=== PATIENT | female | born 1955 | race Caucasian/White ===

== ENCOUNTER → 2016-10-09 | Outpatient (CLI) | payer MEDICARE, OTHER ==
[~2016-10-09] MED LIST: AMBIEN PO; AMBIEN10 MG PO; ASPIRIN81 MG PO; AUGMENTIN875 MG PO; AURALGAN EAR DR14 ML OT; AZITHROMYCIN250 MG PO; BACTRIM DS TABL1 TA1 PO; CARAFATE PO; EFFIENT10 MG PO; FIORICET 50-321 EACH PO; HYDROCODON-ACE1 EAC5 PO; HYDROCODONE-APA1 T54 PO; LEVAQUIN PO; LIPITOR40 MG PO; LISINOPRIL PO; MEDROL4 MG/DOSE- PO; METOPROLOL TAR25 MG PO; NAPROXEN PO; NEXIUM PO; NICOTINE TRANSD14 MG EXT; NITROSTAT0.4 MG SL; NORCO 10/3251 TAB PO; NORVASC PO; PAXIL40 MG PO; PHENERGAN25 M1 PO; PROTONIX PO; PYRIDIUM PO; SUCRALFATE1 G/10 M1 PO
--- NOTE | ~2016-10-09 | MY11 ---
[facility] A Service of [facility] RADIOLOGY TEXT RESULTS PATIENT: LITZY DEVINE LOCATION: [facility] : 57 UNIT #: [id number] AGE: [address]: Joel Bullard MD SEX: F ORDER DR: [id number] [id number] [facility]. [place], [place] [address] [id number] O MR#: [id number] Acc #: [id number] NAME: LITZY DEVINE : 1955 SEX: F STUDY DATE/TIME: 10/09/2016 12:53 UNIT: [facility] ROOM: STUDY DESCRIPTION: MY Mammogram Screening Dig Bhaskar Attending Physician: Joel Bullard M.D. Ordering Physician: Joel Bullard M.D. Primary Care Physician: Joel Bullard M.D. MEDICAL IMAGING REPORT This report is preliminary unless electronic signature is present EXAM Digital screening mammogram, 10/09/2016. HISTORY 61-year-old woman; no risk elevation. Annual screening. COMPARISON STUDIES 06/21/2014. Follow-up diagnostic right breast imaging with ultrasound, 01/16/2015. FINDINGS Digital imaging of each breast was completed, utilizing screening protocol. Review incudes FDA-approved CAD device. Breast parenchyma is moderately dense with residual fibronodular opacities centrally located in each breast. There is stable dominance on the right. I see no developing mass or interval-occurring microcalcifications and no suspicious architectural deformity. IMPRESSION Benign mammogram. Annual screening recommended. Patients over the age of 40 are entered into a reminder system with target due date for the next mammogram. A result letter will also be sent to the patient. BIRADS: 2 Benign finding. Dictated by... Armond Ayala M.D. [facility] A Service of [facility] RADIOLOGY TEXT RESULTS PATIENT: LITZY DEVINE LOCATION: [facility] : 57 UNIT #: [id number] AGE: [address]: Joel Bullard MD SEX: F ORDER DR: THIS IS AN ELECTRONICALLY VERIFIED REPORT Armond Ayala M.D. at 10/10/2016 8:01 AM Nela TD: 10/09/2016 17:35 JOB #: [id number] MEDICAL IMAGING REPORT Page 1 of 1 COPY
== END | disposition home or self-care (01) ==
LOC: CWCC 12:33
DX: Z12.31 Encounter for screening mammogram for malignant neoplasm of breast (principal)
CPT/HCPCS: G0202

== ENCOUNTER → 2017-03-21 | Outpatient (CLI) | payer MEDICARE, OTHER ==
--- NOTE | ~2017-03-21 | MR17 ---
[facility] A Service of [facility] RADIOLOGY TEXT RESULTS PATIENT: LITZY DEVINE LOCATION: [facility] : 57 UNIT #: [id number] AGE: [address]: Joel Bullard MD SEX: F ORDER DR: [id number] [address] [address] [id number] O MR#: [id number] Acc #: [id number] NAME: LITZY DEVINE : 1955 SEX: F STUDY DATE/TIME: 03/21/2017 10:40 UNIT: [facility] ROOM: STUDY DESCRIPTION: MR Brain WWo Contrast Attending Physician: Joel Bullard M.D. Ordering Physician: Joel Bullard M.D. Primary Care Physician: Joel Bullard M.D. MRI CENTER REPORT This report is preliminary unless electronic signature is present. EXAM MRI of the brain with and without contrast dated 03/21/[address] head without contrast dated 12/27/2012. HISTORY Increased vertigo/dizziness for the last 1-2 months. FINDINGS Multisequence, multiplanar imaging of the brain was obtained with and without contrast. GFR measured greater than 60. 12 mL of MultiHance was administered intravenously. Multiple less than 1 cm hyperintense T2-signal lesions are noted in the brain involving subcortical white matter, periventricular white matter, bilateral external/extreme capsular region, elmer. Relatively larger area of increased T2 signal is noted in the anterolateral right temporal lobe, at and below the level of the right circular sulcus. Thick slices through the sella with the pituitary gland, pineal region and upper cervical spine are within normal limits. Postcontrast sequences do not demonstrate enhancing lesions. Nasal septum is deviated to the left. Paranasal sinuses, orbits with the ocular structures are unremarkable. There is minimal bilateral mastoid mucosal thickening. IMPRESSION 1. Scattered hyperintense T2-signal lesions are noted in the brain, nonspecific and nonenhancing. Based on age and statistics, they are likely related to old insults likely from chronic moderate microvascular ischemic change or migraine. There is a larger area of insult in the right temporal lobe. Correlate with history. 2. The lesions could also be related to other reasons like white matter disease. Nonspecific and hence clinical correlation is suggested. 3. No acute intracranial abnormality like acute stroke, hydrocephalus, STS. [facility] A Service of [facility] RADIOLOGY TEXT RESULTS PATIENT: LITZY DEVINE LOCATION: [facility] : 57 UNIT #: [id number] AGE: [address]: Joel Bullard MD SEX: F ORDER DR: midline shift. No hemorrhage or enhancing mass is seen. Dictated by... Carolynn Griffith M.D. THIS IS AN ELECTRONICALLY VERIFIED REPORT Carolynn Griffith M.D. at 03/26/2017 7:04 PM CPR/mjs TD: 03/22/2017 07:17 JOB #: [id number] MRI CENTER REPORT Page 1 of 1
[2017-03-21 12:45] LABS: POC - CREATININE 0.85 mg/dL (0.44-1.03); POC - GFR >60.0 mL/min (>60)
== END | disposition home or self-care (01) ==
LOC: SMRI 09:41
PROVIDERS: Family Medicine
DX: R42 Dizziness and giddiness (principal); R90.89 Other abnormal findings on diagnostic imaging of central nervous system
CPT/HCPCS: 70553; 82565; A9581

== ENCOUNTER 2017-03-26 14:19 | Emergency (ER) | payer MEDICARE ==
[~2017-03-26] VITALS: Ht 162.6 cm; Wt 59.9 kg
--- NOTE | ~2017-03-26 | CT23 ---
[facility] A Service of [facility] RADIOLOGY TEXT RESULTS PATIENT: LITZY DEVINE LOCATION: [facility] : 57 UNIT #: [id number] AGE: [address]: French Yin MD SEX: F ORDER DR: [id number] [facility] [address] [place], [place] [address] [id number] E MR#: [id number] Acc #: [id number] NAME: LITZY DEVINE : 1955 SEX: F STUDY DATE/TIME: 03/26/2017 16:46 UNIT: [facility] ROOM: STUDY DESCRIPTION: CT Angio Neck Attending Physician: French Yin M.D. Ordering Physician: French Yin M.D. Primary Care Physician: Joel Bullard M.D. MEDICAL IMAGING REPORT This report is preliminary unless electronic signature is present EXAM CT angiogram of the head and neck with contrast dated 03/26/[address] head without contrast dated 03/26/2017, MRI brain with and without contrast dated 03/21/2017. HISTORY Blurred vision, headache, neck pain, back pain for 2 months. It is worse today. FINDINGS CT angiogram of the head and neck was obtained with IV contrast in the axial plane followed by reformats. Curved reformats of the major neck arteries were performed. Head was reformatted in 3 planes along with tumbling 3-D MIP images of the [place]. Surface rendered images with bilateral MCA snapshots were obtained in a separate workstation. This CT examination was performed with one or more of the following radiation dose reduction techniques: automatic exposure control, adjustment of mA and/or kV according to patient size, and iterative reconstruction. NECK: Left common carotid artery arises from the innominate artery. Two-vessel aortic arch is seen. There appears to be mild narrowing of the mid to distal third of the left common carotid artery, mid third of the right common carotid due to noncalcified atherosclerotic plaques. Calcified plaques are noted in bilateral common carotid artery bifurcations extending into bilateral ICA bulbs. No measurable severe stenosis in bilateral ICA bulbs per NASCET criteria. Bilateral external carotid arteries are within normal limits. Vertebral arteries demonstrate expected course, caliber and flow. No significant stenosis, aneurysm or AVM. [facility] A Service of [facility] RADIOLOGY TEXT RESULTS PATIENT: LITZY DEVINE LOCATION: [facility] : 57 UNIT #: [id number] AGE: [address]: French Yin MD SEX: F ORDER DR: HEAD: Bilateral intracranial internal carotid arteries demonstrate mild atherosclerotic plaques in bilateral cavernous ICA. Air pockets are noted adjacent to the left cavernous ICA without any aneurysmal dilatation or obvious dissection. Bilateral anterior and middle cerebral arteries are within normal limits. Bilateral posterior communicating arteries are noted which feed P2 and distal portions of bilateral LOG MARKER. Left P1 segment is not as well seen and is probably aplastic to very hypoplastic. A small right P1 segment is noted. 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 No significant stenosis is noted from P2 portions of bilateral LOG MARKER distally. Bilateral vertebral arteries demonstrate decrease in caliber as they extend towards the basilar artery. It is noted particularly in the right distal V4 segment after the takeoff of the right vertebral artery. No occlusive thrombus in the dural venous sinuses. IMPRESSION 1. No hemodynamically flow-limiting significant stenosis in bilateral internal carotid artery bulbs per NASCET criteria. 2. Atherosclerotic narrowing is noted in bilateral common carotid arteries. 3. No significant aneurysm, AVM or dissection in the major vessels of the head or neck. 4. Air pockets are noted adjacent to the cavernous left ICA, in the superior aspect of the left vehicle damage appraiser space above the zygomatic arch and in the region of the left petroclival synchondrosis and adjacent carotid canal. No well-defined fracture lines could be clearly seen to correlate for injury with subsequent air intracranially. Correlate with history. No obvious dissection of the vessel nearby could be seen nor is there any pseudoaneurysm. Dictated by... Carolynn Griffith M.D. THIS IS AN ELECTRONICALLY VERIFIED REPORT Carolynn Griffith M.D. at 03/27/2017 6:38 PM CPR/mjs TD: 03/27/2017 09:48 JOB #: [id number] MEDICAL IMAGING REPORT Page 1 of 1 COPY
--- NOTE | ~2017-03-26 | CT71 ---
[facility] A Service of [facility] RADIOLOGY TEXT RESULTS PATIENT: LITZY DEVINE LOCATION: [facility] : 57 UNIT #: [id number] AGE: [address]: French Yin MD SEX: F ORDER DR: [id number] [facility] [address] [place], [place] [address] [id number] E MR#: [id number] Acc #: [id number] NAME: LITZY DEVINE : 1955 SEX: F STUDY DATE/TIME: 03/26/2017 16:44 UNIT: [facility] ROOM: STUDY DESCRIPTION: CT Head Wo Contrast Attending Physician: French Yin M.D. Ordering Physician: French Yin M.D. Primary Care Physician: Joel Bullard M.D. MEDICAL IMAGING REPORT This report is preliminary unless electronic signature is present EXAM CT head without contrast 03/26/2017 HISTORY 61-year-old female with blurry vision and headache for 2 months, worse today. COMPARISON CT head 12/27/2012 TECHNIQUE Routine unenhanced axial images performed through the brain. This CT exam was performed with one or more of the following radiation dose reduction techniques: Automatic exposure control, adjustment of mA and/or kV according to patient size, and iterative reconstruction. FINDINGS No hemorrhage, acute infarction, mass lesion, or abnormal extraaxial fluid collection. No midline shift or focal mass effect. Ventricular system normal in size and configuration. No acute bony abnormality. Visualized paranasal sinuses and mastoid air cells are clear. IMPRESSION No acute intracranial abnormality. Dictated by... Jadiel Meyers M.D. THIS IS AN ELECTRONICALLY VERIFIED REPORT Jadiel Meyers M.D. at 03/27/2017 4:07 PM ROSALBA/carissa [facility] A Service of [facility] & [facility] RADIOLOGY TEXT RESULTS PATIENT: LITZY DEVINE LOCATION: [facility] : 57 UNIT #: [id number] AGE: [address]: French Yin MD SEX: F ORDER DR: TD: 03/27/2017 08:30 JOB #: [id number] MEDICAL IMAGING REPORT Page 1 of 1 COPY
--- NOTE | ~2017-03-26 | CT17 ---
[facility] A Service of [facility] RADIOLOGY TEXT RESULTS PATIENT: LITZY DEVINE LOCATION: [facility] : 57 UNIT #: [id number] AGE: [address]: French Yin MD SEX: F ORDER DR: [id number] [facility] [address] [place], [place] [address] [id number] E MR#: [id number] Acc #: [id number] NAME: LITZY DEVINE : 1955 SEX: F STUDY DATE/TIME: 03/26/2017 16:46 UNIT: [facility] ROOM: STUDY DESCRIPTION: CT Angio Head Attending Physician: French Yin M.D. Ordering Physician: French Yin M.D. Primary Care Physician: Joel Bullard M.D. MEDICAL IMAGING REPORT This report is preliminary unless electronic signature is present EXAM CT angiogram of the head with contrast dated 03/26/2017 HISTORY Blurred vision, headache, neck pain, back pain for 2 months. It is worse today FINDINGS Please see CT angiogram of the neck for results. Dictated by... Carolynn Griffith M.D. THIS IS AN ELECTRONICALLY VERIFIED REPORT Carolynn Griffith M.D. at 03/27/2017 6:38 PM CPR/yanet TD: 03/27/2017 09:49 JOB #: [id number] MEDICAL IMAGING REPORT Page 1 of 1 COPY
[2017-03-26 15:53] LABS: BASOPHIL% 0.1 % (0-2.5); EOSINOPHIL# 0.1 X10e3 (0-0.7); EOSINOPHIL% 0.9 % (0.0-7.0); HEMATOCRIT 38.4 % (35.0-45.0); HEMOGLOBIN 12.8 gm/dL (12.0-16.0); LYMPHOCYTE# 3.3 X10e3 (1.0-3.5); LYMPHOCYTE% 36.4 % (17.0-45.0); MEAN CELL VOLUME 90.5 FL (83-96); MEAN CORPUSCULAR HEMOGLOBIN 30.1 PG (28-34); MEAN CORPUSCULAR HGB CONC 33.2 g/dL (30-36); MEAN PLATELET VOLUME 7.9 FL (6.5-11.5); MONOCYTE# 0.8 X10e3 (0-1.0); MONOCYTE% 8.5 % (3.0-12.0); NEUTROPHIL# 4.9 X10e3 (1.5-7.1); NEUTROPHIL% 54.1 % (40-75); PLATELET COUNT 248 X10e3 (140-420); RED BLOOD COUNT 4.25 X10e (3.90-5.30); WHITE BLOOD COUNT 9.1 X10e3 (4.0-10.5)
[2017-03-26 15:58] LABS: DIFF IND NO
[2017-03-26 16:00] LABS: ALBUMIN SERUM 4.2 g/dL (3.5-5.0); ALKALINE PHOSPHATASE 81 U/L (32-92); ALT (SGPT) 15 U/L (10-40); AST (SGOT) 19 U/L (10-42); BILIRUBIN, DIRECT <0.1 mg/dL (0.0-0.2); BILIRUBIN,INDIRECT 0.2 mg/dL (0.0-0.9); BILIRUBIN,TOTAL 0.3 mg/dL (0.2-2.0); BLOOD UREA NITROGEN 15 mg/dL (9-23); BUN/CREATININE RATIO 18.75; CALCIUM SERUM 9.2 mg/dL (8.4-10.2); CARBON DIOXIDE 27 mmol/L (22-31); CHLORIDE 108 mmol/L (100-111); CREATININE SERUM 0.8 mg/dL (0.6-1.4); GLOM FILT RATE Estimated 80.2 mL/min (>60); GLUCOSE FASTING 83 mg/dL (70-110); PROTEIN TOTAL SERUM 7.5 g/dL (6.0-8.3); SODIUM 144 mmol/L (135-145)
[2017-03-26 16:05] LABS: PARTIAL THROMBOPLASTIN TIME 24.3 SECONDS (23.5-31.3); PROTHROMBIN TIME (PATIENT) 10.9 SECONDS (10.0-11.7)
== END 2017-03-26 19:30 | disposition home or self-care (01) ==
LOC: CED 14:19
PROVIDERS: Emergency Medicine
DX: G43.909 Migraine, unspecified, not intractable, without status migrainosus (principal); I10 Essential (primary) hypertension; F17.210 Nicotine dependence, cigarettes, uncomplicated; Z79.899 Other long term (current) drug therapy
CPT/HCPCS: 36415; 70450; 70496; 70498; 80048; 80076; 85025; 85610; 85652; 85730; 96361; 96365; 96375; 99284; J1100; J1885; Q9967